=== PATIENT | female | born 1995 | race Caucasian/White ===

== ENCOUNTER 2022-05-28 18:43 | Emergency (ER) | payer OTHER ==
[~2022-05-28] VITALS: Ht 154.9 cm; Wt 96.2 kg
[2022-05-28] MEDS ORDERED: IBUPROFEN 600 MG TABLET PO ONE (19:15)
[2022-05-28] MEDS ORDERED: HYDROcodone/ACETAMIN 7.5-325 MG TAB PO ONE (19:15)
[2022-05-28 19:20] VITALS: BP_SYST 120
[2022-05-28] MEDS ORDERED: IBUP-1969 PO (20:05)
[2022-05-28] MEDS ORDERED: HYDR-3917 PO (20:05)
[2022-05-28 21:30] VITALS: BP_SYST 120
== END 2022-05-28 21:30 | disposition home or self-care (01) ==
LOC: SED 18:43
DX: S83.91XA Sprain of unspecified site of right knee, initial encounter (principal); Z79.899 Other long term (current) drug therapy; W50.0XXA Accidental hit or strike by another person, initial encounter; Y93.89 Activity, other specified; Y92.89 Other specified places as the place of occurrence of the external cause; Y99.8 Other external cause status
CPT/HCPCS: 73564; 99283